=== PATIENT | female | born 1975 | race Hispanic/Latino ===

== ENCOUNTER 2017-12-31 08:13 | Emergency (ER) | payer OTHER ==
[~2017-12-31] VITALS: Ht 152.4 cm; Wt 81.6 kg
[2017-12-31] MEDS ORDERED: DEXAMETHASONE SOD PHOS 10 MG/1 ML VIAL INJ ONE (09:00)
[2017-12-31] MEDS ORDERED: KETOROLAC TROMETHAMINE 60 MG/2 ML VIAL IM ONE (09:00)
[2017-12-31 09:20] VITALS: BP 130/97
== END 2017-12-31 09:22 | disposition home or self-care (01) ==
LOC: ER 08:13
DX: M25.512 Pain in left shoulder (principal); S46.812A Strain of other muscles, fascia and tendons at shoulder and upper arm level, left arm, initial encounter; M75.82 Other shoulder lesions, left shoulder
CPT/HCPCS: 99283; J1100; J1885